=== PATIENT | female | born 2000 | race American Indian/Alaskan Native ===

== ENCOUNTER 2021-04-18 10:16 | Emergency (ER) | payer SELFPAY ==
[2021-04-18 10:25] VITALS: BP 101/63
[2021-04-18] MEDS ORDERED: KETOROLAC 10 MG TAB PO ONE (10:47)
--- NOTE | 2021-04-18 11:29 | XRay Report ---
CHEST 2 VIEWS, 04/18/2021 INDICATION: Chest pain COMPARISON: None FINDINGS: Support devices: None. Heart: The cardiac silhouette is normal in size. Lungs/pleura: The lungs are clear of focal airspace disease or significant pleural effusion. Additional findings: No significant acute abnormality. IMPRESSION: 1. No evidence of acute cardiopulmonary process. Signer Name: Mary Jane Armas MD Signed: 04/18/2021 11:25 AM Workstation Name: [email or web address]
--- NOTE | 2021-04-18 11:37 | Emergency Department Report ---
ED General Adult HPI - General Chief complaint: Chest Pain Stated complaint: CHEST PAIN X1 DAY Time Seen by Provider: 04/18/21 10:27 Source: patient Mode of arrival: Ambulatory Limitations: No Limitations - History of Present Illness Initial comments: 20-year-old black female with a past medical history of asthma and no known family history of CAD presents to the emergency department for evaluation of 1 day history of left chest pain she states that pain started yesterday after she braided her hair for several hours. She states that pain is worse with movement and deep breathing. She denies shortness of breath, nausea, vomiting, dizziness, and diaphoresis. She states that when she is being still the pain is 4 out of 10 and when she moves around a lot or takes really deep breaths, the pain is 10 on a 10 point scale. Last menstrual period: 04/14/2021. -: Sudden, days(s) (1) Location: chest Radiation: non-radiation Severity scale (0 -10): 10 Quality: aching Consistency: intermittent Worsens with: movement, other (Inspiration) Associated Symptoms: chest pain. denies: cough, diaphoresis, fever/chills, headaches, malaise, nausea/vomiting, seizure, shortness of breath, syncope, weakness Treatments Prior to Arrival: none - Related Data Previous Rx's Medication Instructions Recorded Last Taken Type Naproxen [Naprosyn] 500 mg PO BID #14 tab 04/18/21 Unknown Rx Allergies Allergy/AdvReac Type Severity Reaction Status Date / Time Penicillins Allergy Unknown Verified 04/18/21 10:22 ED Review of Systems ROS: Stated complaint: CHEST PAIN X1 DAY Other details as noted in HPI Comment: All other systems reviewed and negative Constitutional: no symptoms reported Eyes: denies: eye pain ENT: denies: ear pain Respiratory: denies: cough Cardiovascular: chest pain. denies: palpitations, dyspnea on exertion, orthopnea, edema, syncope, paroxysmal nocturnal dyspnea Endocrine: no symptoms reported Gastrointestinal: denies: abdominal pain, nausea, vomiting, diarrhea, hematemesis, melena, hematochezia Genitourinary: denies: urgency, dysuria, frequency Musculoskeletal: denies: back pain Skin: denies: rash, lesions Neurological: denies: headache, weakness, numbness, paresthesias, abnormal gait, vertigo Psychiatric: denies: anxiety, depression Hematological/Lymphatic: denies: easy bleeding, easy bruising ED Past Medical Hx - Medications Home Medications: Home Medications Medication Instructions Recorded Confirmed Last Taken Type Naproxen [Naprosyn] 500 mg PO BID #14 tab 04/18/21 Unknown Rx ED Physical Exam - General Limitations: No Limitations General appearance: alert, in no apparent distress - Head Head exam: Present: atraumatic, normocephalic - Eye Eye exam: Present: normal appearance. Absent: conjunctival injection - Neck Neck exam: Present: normal inspection. Absent: tenderness, lymphadenopathy - Respiratory Respiratory exam: Present: normal lung sounds bilaterally, chest wall tenderness. Absent: respiratory distress, wheezes, rales, rhonchi, accessory muscle use - Cardiovascular Cardiovascular Exam: Present: regular rate, normal rhythm, normal heart sounds - GI/Abdominal GI/Abdominal exam: Present: soft, normal bowel sounds. Absent: distended, tenderness, guarding, rebound, rigid - Extremities Exam Extremities exam: Present: normal inspection - Back Exam Back exam: Present: normal inspection. Absent: CVA tenderness (R), CVA tenderness (L) - Neurological Exam Neurological exam: Present: alert, oriented X3 - Psychiatric Psychiatric exam: Present: normal affect, normal mood - Skin Skin exam: Present: warm, dry, intact, normal color ED Course Vital Signs 04/18/21 10:22 Temperature 98.3 F Pulse Rate 76 Respiratory 16 Rate Blood Pressure 101/63 [Left] O2 Sat by Pulse 100 Oximetry ED Medical Decision Making - EKG Data EKG shows normal: sinus rhythm Rate: normal - EKG Data Interpretation: no acute changes, normal EKG 04/18/21 12:44 No acute ischemic changes noted - Radiology Data Radiology results: report reviewed, image reviewed Chest x-ray IMPRESSION: 1. No evidence of acute cardiopulmonary process. - Medical Decision Making 20-year-old black female with a past medical history of asthma and no known family history of CAD presents to the emergency department for evaluation of 1 day history of left chest pain she states that pain started yesterday after she braided her hair for several hours. She states that pain is worse with movement and deep breathing. She denies shortness of breath, nausea, vomiting, dizziness, and diaphoresis. She states that when she is being still the pain is 4 out of 10 and when she moves around a lot or takes really deep breaths, the pain is 10 on a 10 point scale. Last menstrual period: 04/14/2021. EKG without ischemic changes. Chest x-ray within normal limits. Patient noted to be tender on palpation, increased pain with movement, and increased pain with inspirations. Assessment consistent for chest wall tenderness. She was given Toradol 1 mg p.o. in the ER and sent home with 7-day course of naproxen 500 mg p.o. twice daily. She was advised to take medication as prescribed and follow- up with primary care provider if no improvement or worsening symptoms. She was advised to return to the emergency department for any concerning symptoms. She verbalized understanding of and agreement with plan of care. Critical care attestation.: If time is entered above; I have spent that time in minutes in the direct care of this critically ill patient, excluding procedure time. ED Disposition Clinical Impression: Chest wall tenderness Disposition: 01 HOME / SELF CARE / HOMELESS Is pt being admited?: No Does the pt Need Aspirin: No Condition: Stable Instructions: Chest Wall Pain, [id number] Additional Instructions: Take medications as prescribed. Follow-up with primary care provider if no improvement or worsening symptoms. Prescriptions: Naproxen [Naprosyn] 500 mg PO BID #14 tab Referrals: PRIMARY CARE [Primary Care Provider] - 3-5 Days Time of Disposition: 11:37
--- NOTE | 2021-04-19 11:50 | Electrocardiograph Report ---
[facility] Test Date: 2021-04-18 Test Time: 10:37:08 Pat Name: PAULIE PARRY Department: Room: Gender: F [employer]: JOSH : 2000 Requested By: HAKAN TANNER Order Number: [id number] Reading MD: Gwyn Panda Measurements Intervals Milo Rate: 62 P: 8 FL: 164 QRS: 39 QRSD: 87 T: -9 QT: 373 QTc: 378 Interpretive Statements Sinus rhythm No previous ECG available for comparison Electronically Signed On 04-19-2021 11:50:21 EST by Gwyn Panda
== END 2021-04-18 11:50 | disposition home or self-care (01) ==
LOC: ED 10:16
DX: R07.89 Other chest pain (principal); R05.9 Cough, unspecified; Z88.0 Allergy status to penicillin; Z79.899 Other long term (current) drug therapy
CPT/HCPCS: 71046; 93005; 93010; 99283